=== PATIENT | female | born 1960 | race Caucasian/White ===

== ENCOUNTER 2022-01-16 20:51 | Emergency (ER) | payer SELFPAY ==
[~2022-01-16] VITALS: Ht 165.1 cm; Wt 77.1 kg
[2022-01-16 20:51] VITALS: BP 152/102
--- NOTE | 2022-01-16 20:56 | NUR ---
JULIÁN PAIGE[facility]
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
[2022-01-16] MEDS ORDERED: IBUP-2213 PO (21:41)
[2022-01-16] MEDS: KETOROLAC 30 MG/ML VIAL IVP ONE (21:51)
--- NOTE | 2022-01-16 21:51 | NUR ---
anah to give iv toradol
[2022-01-16 21:59] VITALS: BP 143/79
--- NOTE | 2022-01-16 21:59 | NUR ---
Patient discharged with v/s stable. Written and verbal after care instructions given and explained. Patient alert, oriented and verbalized understanding of instructions. Ambulatory with steady gait. All questions addressed prior to discharge. ID band removed. Patient advised to follow up with PMD. Rx of IBRUPROFEN given. Opportunity to ask questions provided and answered.
--- NOTE | 2022-01-16 22:30 | NUR ---
Note undone in EDM - 01/16/22 at 2240 by AMADEO 61 YO BIBA FROM HOME FOR BILAT LEG PAIN 07/20 AND GEN WEAKENESS. PT SAYS IT HAS BEEN FOR 6 MOTHS AND PAIN PAIN LASTS FOR HOURS UPON REST OR STANDING. DENIES N/V/D; SKIN IS PINK/WARM/DRY WITH SOME ABRASIONS TO LOWER BILAT LEG; AAOX4 WITH UNEVEN AND UNSTEADY GAIT DUE TO CRAMPS; HR EVEN AND REGULAR; PT DENIES ANY FEVER, CP, SOB, OR COUGH AT THIS TIME; PATIENT POSITIONED FOR COMFORT; HOB ELEVATED; BEDRAILS UP X2; BED DOWN. ER MADE AWARE OF PT STATUS.
== END 2022-01-16 21:59 | disposition home or self-care (01) ==
LOC: MED 20:51
DX: R07.89 Other chest pain (principal); R06.02 Shortness of breath; I10 Essential (primary) hypertension; Z98.890 Other specified postprocedural states
CPT/HCPCS: 93005; 96374; 99283; J1885